=== PATIENT | female | born 1965 | race Caucasian/White ===

== ENCOUNTER 2018-08-07 07:04 | Outpatient (CLI) | payer OTHER | END 2018-08-07 07:09 | disposition home or self-care (01) | LOC: SONOGRAMA 07:04 | DX: E04.1 Nontoxic single thyroid nodule (principal) ==

== ENCOUNTER 2018-12-11 07:14 | Outpatient (CLI) | payer OTHER | END 2018-12-11 07:20 | disposition home or self-care (01) | LOC: SONOGRAMA 07:14 | DX: E04.2 Nontoxic multinodular goiter (principal) ==

== ENCOUNTER 2019-06-27 07:46 | Outpatient (CLI) | payer OTHER | END 2019-06-27 08:03 | disposition home or self-care (01) | LOC: LAB 07:46 | DX: E04.1 Nontoxic single thyroid nodule (principal) ==

== ENCOUNTER 2023-03-11 11:31 | Emergency (ER) | payer OTHER ==
[~2023-03-11] VITALS: Ht 172.7 cm; Wt 64.9 kg
== END 2023-03-11 16:21 | disposition home or self-care (01) ==
LOC: ER 11:31
DX: I77.6 Arteritis, unspecified (principal)

== ENCOUNTER 2023-08-26 08:17 | Outpatient (CLI) | payer OTHER | END 2023-08-26 08:24 | disposition home or self-care (01) | LOC: SONOGRAMA 08:17 | PROVIDERS: ATTEND Pathology Anatomic Pathology & Clinical Pathology | DX: D34 Benign neoplasm of thyroid gland (principal); E04.9 Nontoxic goiter, unspecified ==

== ENCOUNTER 2024-04-30 09:42 | Outpatient (CLI) | payer OTHER ==
[~2024-04-30 09:42] MED LIST: PERCOCET 5-3251 EACH PO; ZITHROMAX200 MG PO
== END 2024-04-30 09:44 | disposition home or self-care (01) ==
LOC: SONOGRAMA 09:42
PROVIDERS: ATTEND Pathology Anatomic Pathology
DX: D34 Benign neoplasm of thyroid gland (principal); E07.89 Other specified disorders of thyroid; E04.2 Nontoxic multinodular goiter